=== PATIENT | female | born 1980 | race Caucasian/White ===

== ENCOUNTER 2024-01-16 08:39 | Emergency (ER) | payer OTHER ==
[2024-01-16] MEDS ORDERED: Ketorolac Tromethamine 30 MG (1 mL) VIAL ONE (09:44)
[2024-01-16] MEDS ORDERED: Ondansetron PF 4 MG/2 ML Vial ONE (09:44)
[2024-01-16] MEDS ORDERED: Iopamidol 300 61% 100 ML VIAL FS ONE (09:54)
[2024-01-16 09:59] LABS: #Basophils 0.04 10x3/uL (0.0-0.2); #Eosinophils 0.09 10x3/uL (0.0-0.5); #Monocytes 2.01 10x3/uL (0.0-1.1); #Neutrophils 21.16 10x3/uL (1.5-8.4); %Basophils 0.2 % (0.0-2.0); %Eosinophils 0.4 % (0.0-6.0); %Monocytes 8.2 % (0.0-10.0); %Neutrophils 86.2 % (40.0-75.0); Hematocrit 43.2 % (34.9-44.5); Hemoglobin 14.8 g/dL (12.0-15.5); Mean Corpuscular HGB CONC 34.3 g/dL (32.0-36.0); Mean Corpuscular Hemoglobin 34.7 pg (27.0-33.0); Mean Corpuscular Volume 101.2 fL (81.6-98.3); Mean Platelet Volume 11.7 fL (7.4-10.4); Platelet Count 192 10x3/uL (150-450); RBC Distribution Width 12.6 % (11.5-14.5); Red Blood Cell (RBC) Count 4.27 10x6/uL (3.90-5.03); White Blood Cell (WBC) Count 24.5 10x3/uL (3.5-10.5)
[2024-01-16 10:16] LABS: ALT (SGPT) 20 U/L (8-55); AST (SGOT) 24 U/L (5-34); Albumin 3.3 g/dL (3.5-5.0); Alkaline Phosphatase 137 U/L (40-110); Anion Gap 16 mmol/L (10-20); BUN (Urea Nitrogen) 15 mg/dL (7.0-18.7); Bilirubin, Total 1.1 mg/dL (0.2-1.2); Calc. Creatinine Clearance 0 mL/min (70-130); Carbon Dioxide 23 mmol/L (22-29); Chloride 99 mmol/L (98-107); Estimated GFR 100; Globulin 3.7 g/dL (2.4-3.5); Glucose 130 mg/dL (70-105); Lipase 6 U/L (8-78); Sodium 135 mmol/L (136-145)
[2024-01-16 11:46] LABS: Bilirubin 3+ (Negative); Blood, Urine 250 (Negative); Clarity Cloudy (Clear); Glucose, Urine (Dipstick) Normal (Negative); Ketone, Urine 15 mg/dL (Negative); Leukocyte 100 (Negative); Nitrite Positive (Negative); Protein, Urine (Dipstick) 100 mg/dl (Neg-Trace)
[2024-01-16 11:53] LABS: Pregnancy Test - Urine (BHCG) Negative (Negative); Pregu Control Background? CLEAR/WHITE (CLR/WHITE); Pregu Control Bar Appear? YES (CONTROL BAR)
[2024-01-16 12:04] LABS: Bacteria/HPF Rare-Few HPF (None Seen); CAUTI Indications for Culture Dysuria,urgency,freq; RBC/HPF Greater than 50 HPF (0-3); Squamous Epithelial Greater than 50 HPF (0-3)
[2024-01-16 12:05] LABS: Urine Culture Reflex Yes Yes
[2024-01-16] MEDS ORDERED: Cefepime 2 GM VIAL ONE (12:14)
[2024-01-16] MEDS ORDERED: Acetaminophen 325 MG TAB ONE (12:28)
[2024-01-16] MEDS ORDERED: Nicotine 14 MG PATCH TD PRN (13:24)
[2024-01-16] MEDS ORDERED: Polyethylene Glycol 3350 17 GM Packet PO PRN (13:24)
[2024-01-16] MEDS ORDERED: Ondansetron PF 4 MG/2 ML Vial IVP PRN (13:25)
[2024-01-16] MEDS ORDERED: Ondansetron ODT 4 MG TAB PO PRN (13:25)
[2024-01-16] MEDS ORDERED: Calcium Carbonate 500 MG ChewTAB PO PRN (13:25)
[2024-01-16] MEDS ORDERED: NS 0.9% w/ 20 MEQ KCL 1,000 ML/1,000 ML BAG IV SCH (13:30)
[2024-01-16 14:12] LABS: Magnesium 1.6 mg/dL (1.6-2.6)
[2024-01-16] MEDS ORDERED: Acetaminophen 325 MG TAB PO PRN (15:00)
[2024-01-16] MEDS ORDERED: Ketorolac Tromethamine 15 MG/ML VIAL IVP PRN (15:00)
[2024-01-16] MEDS ORDERED: Potassium Chloride 20 MEQ TAB PO SCH (17:00)
[2024-01-16] MEDS ORDERED: Senokot S 8.6-50 MG TAB PO SCH (21:00)
[2024-01-16] MEDS ORDERED: Cyanocobalamin (Vitamin B-12) 1,000 MCG TAB PO SCH (21:00)
[2024-01-16] MEDS ORDERED: Multivit, Therapeutic 1 TAB PO SCH (21:00)
[2024-01-16] MEDS ORDERED: Famotidine/PF 20 mg/2ml Vial SLOW IVP SCH (21:00)
[2024-01-16] MEDS ORDERED: Folic Acid 1 MG TAB PO SCH (21:00)
[2024-01-16] MEDS ORDERED: Famotidine 20 MG TAB PO SCH (21:00)
[2024-01-16] MEDS ORDERED: cefTRIAXone\\ROCEPHIN 2 GM in Sodium Chloride 0.9% 100 ML IVPB SCH (23:00)
[2024-01-17] MEDS ORDERED: Enoxaparin 40 MG (0.4 mL) SYRINGE SC SCH (09:00)
== END 2024-01-16 16:00 | disposition home or self-care (01) ==
LOC: CSHERS 08:39
DX: N10 Acute pyelonephritis (principal); D72.829 Elevated white blood cell count, unspecified; F17.210 Nicotine dependence, cigarettes, uncomplicated
CPT/HCPCS: 36415; 74177; 80053; 81001; 81025; 83690; 83735; 85025; 87077; 87086; 87186; 96374; 96375; J0692; J1885; J2405; Q9967